=== PATIENT | female | born 2005 | race Caucasian/White ===

== ENCOUNTER 2023-12-22 11:47 | Day surgery (SDC) | payer BC ==
[2023-12-19 12:19] VITALS: BMI 33.8
[2023-12-22] MEDS ORDERED: PROPOFOL 20 ML ONE (11:54)
[2023-12-22] MEDS ORDERED: fentaNYL 50 mcg/mL 1 mL Vial ONE ×3 (11:55→13:29)
[2023-12-22] MEDS ORDERED: Midazolam HCl 2 mg/2 ml Vial ONE (11:55)
[2023-12-22] MEDS ORDERED: Bupivacaine/Epinephrine 0.25% 30 ML VIAL ONE (12:06)
[2023-12-22] MEDS ORDERED: Lidocaine 2% 6 ML (Jelly) SYR ONE (12:06)
[2023-12-22] MEDS ORDERED: CEFAZOLIN 2 GM VIAL ONE ×2 (12:07→12:11)
[2023-12-22] MEDS ORDERED: ceFOXitin 1 GM VIAL ONE (12:08)
[2023-12-22] MEDS ORDERED: Ondansetron PF 4 MG/2 ML Vial ONE (12:32)
[2023-12-22] MEDS ORDERED: Dexamethasone 4 mg/ml Vial ONE (12:32)
[2023-12-22] MEDS ORDERED: diphenhydrAMINE 50 MG/ML VIAL ONE (12:32)
[2023-12-22] MEDS ORDERED: Ketorolac Tromethamine 30 MG (1 mL) VIAL ONE (13:03)
[2023-12-22] MEDS ORDERED: Meperidine HCl/PF 25 MG (1 mL) VIAL ONE (13:11)
[2023-12-22] MEDS ORDERED: HYDROcodone/Acetaminophen 5/325 mg Tablet ONE (14:05)
== END 2023-12-22 14:40 | disposition home or self-care (01) ==
LOC: CSHSDC 11:47
PROVIDERS: ATTEND Surgery
PROC: 0D9Q00Z Drainage of Anus with Drainage Device, Open Approach (ICD-10-PCS; principal; 2023-12-22)
DX: K60.3 Anal fistula (principal)
CPT/HCPCS: J0694; J1100; J1200; J1885; J2175; J2250; J2405; J2704; J3010